=== PATIENT | male | born 1945 | race Caucasian/White ===

== ENCOUNTER 2021-05-13 07:54 | Outpatient (CLI) | payer OTHER ==
[2021-05-13 17:27] LABS: SARS-CoV-2 PCR by NAA Not Detected (NotDetected)
== END 2021-05-13 07:55 | disposition home or self-care (01) ==
LOC: CSHLAB 07:54
PROVIDERS: ATTEND Internal Medicine
DX: Z01.812 Encounter for preprocedural laboratory examination (principal); Z20.822 Contact with and (suspected) exposure to COVID-19
CPT/HCPCS: U0003; U0005

== ENCOUNTER 2021-05-18 07:14 | Outpatient (CLI) | payer OTHER | END 2021-05-18 07:15 | disposition home or self-care (01) | LOC: CSHCP 07:14 | PROVIDERS: ATTEND Internal Medicine | DX: I26.99 Other pulmonary embolism without acute cor pulmonale (principal); Z72.0 Tobacco use; R94.2 Abnormal results of pulmonary function studies | CPT/HCPCS: 94060; 94726; 94729; 94760 ==